=== PATIENT | male | born 1970 | race Caucasian/White ===

== ENCOUNTER 2020-03-05 13:31 | Inpatient (IN) | payer OTHER, MEDICAID ==
[~2020-03-05] VITALS: Ht 185.4 cm; Wt 79.8 kg
[2020-03-05 13:47] VITALS: BP_SYST 145
[2020-03-05] MEDS ORDERED: KETOROLAC TROMETHAMINE 30 MG VIAL IVP ONE (14:30)
[2020-03-05 14:38] LABS: BASOPHILS % (AUTO) 0.6 % (0.0-2.0); EOSINOPHILS % (AUTO) 0.4 % (0.0-4.0); HEMATOCRIT 39.2 % (36-54); HEMOGLOBIN 13.4 g/dL (14.0-18.0); LYMPHOCYTES # (AUTO) 0.9 K/uL (1.0-5.5); MEAN CORPUSCULAR HEMOGLOBIN 30 pg (27-31); MEAN CORPUSCULAR HGB CONC 34 % (32-36); MEAN CORPUSCULAR VOLUME 89 fL (79.0-98.0); MONOCYTES # (AUTO) 0.5 K/uL (0.0-1.0); MONOCYTES % (AUTO) 11.1 % (1.7-9.3); NEUTROPHILS # (AUTO) 3.2 K/uL (1.8-7.7); NEUTROPHILS % (AUTO) 68.9 % (40.0-70.0); PLATELET COUNT (AUTO) 203 K/uL (130-430); RED BLOOD CELL COUNT(AUTO) 4.43 MIL/uL (4.2-6.2); RED CELL DISTRIBUTION WIDTH 14.4 % (9.0-15.0); WHITE BLOOD COUNT (AUTO) 4.6 K/uL (4.8-10.8)
[2020-03-05 14:51] LABS: CALCIUM 7.8 mg/dL (8.4-11.0); CREATININE 0.94 mg/dL (0.55-1.30); POTASSIUM 3.8 mmol/L (3.5-5.1)
[2020-03-05 14:56] LABS: ALBUMIN 3.8 g/dL (3.4-4.8); TOTAL BILIRUBIN 0.6 mg/dL (0.0-1.0)
[2020-03-05 16:20] VITALS: BP_SYST 142
[2020-03-05] MEDS ORDERED: THIAMINE HCL 100 MG TABLET PO ONE (16:30)
[2020-03-05] MEDS ORDERED: MAGNESIUM SULFATE 50 ML IV PRN (16:30)
[2020-03-05] MEDS ORDERED: ZOLPIDEM TARTRATE 5 MG TABLET PO PRN (16:30)
[2020-03-05] MEDS ORDERED: DOCUSATE SODIUM 100 MG CAPSULE PO PRN (16:30)
[2020-03-05] MEDS ORDERED: FOLIC ACID 1 MG TABLET PO ONE (16:30)
[2020-03-05] MEDS ORDERED: ONDANSETRON HCL 4 MG/2 ML VIAL IVP PRN (16:30)
[2020-03-05] MEDS ORDERED: FOLIC ACID 1 MG, THIAMINE HCL 100 MG, MAGNESIUM SULFATE 1 GM, MVI 10 ML in NACL 0.9% 1,... IV SCH (16:30)
[2020-03-05] MEDS ORDERED: MUPIROCIN 2% TOPICAL OINTMENT 22 GM NS PRN (16:30)
[2020-03-05] MEDS ORDERED: MORPHINE SULFATE 10 MG/ML VIAL IVP PRN ×2 (16:30)
[2020-03-05] MEDS ORDERED: POTASSIUM CHLORIDE 20 MEQ TAB.PRT.SR PO PRN (16:30)
[2020-03-05] MEDS ORDERED: ACETAMINOPHEN 325 MG TABLET PO PRN (16:30)
[2020-03-05] MEDS: NACL 0.9% 1,000 ML IV SCH ×2 (16:35→22:20)
[2020-03-05] MEDS: LORazepam 2 MG/ML VIAL IVP PRN (16:49)
[2020-03-05] MEDS: THIAMINE HCL 100 MG, MAGNESIUM SULFATE 1 GM in NS 100 ML IV SCH (17:47)
[2020-03-05] MEDS: FOLIC ACID 1 MG, MVI 10 ML in NACL 0.9% 1,000 ML IV SCH (17:47)
[2020-03-05 20:00] VITALS: BP_SYST 122
[2020-03-05] MEDS: chlordiazePOXIDE HCL 25 MG CAPSULE PO SCH (21:25)
[2020-03-05] MEDS: HEPARIN SODIUM,PORCINE 5000 UNITS/ML VIAL SUBCUT SCH (21:36)
[2020-03-06] MEDS: LORazepam 2 MG/ML VIAL IVP PRN ×7 (00:12→22:10)
[2020-03-06 00:27] VITALS: BP_SYST 143
[2020-03-06 05:14] VITALS: BP_SYST 134
[2020-03-06 06:47] LABS: BASOPHILS % (AUTO) 0.6 % (0.0-2.0); EOSINOPHILS % (AUTO) 1.4 % (0.0-4.0); HEMATOCRIT 36.6 % (36-54); HEMOGLOBIN 12.8 g/dL (14.0-18.0); LYMPHOCYTES # (AUTO) 0.9 K/uL (1.0-5.5); LYMPHOCYTES % (AUTO) 27.1 % (20.5-51.5); MEAN CORPUSCULAR HEMOGLOBIN 31 pg (27-31); MEAN CORPUSCULAR HGB CONC 35 % (32-36); MEAN CORPUSCULAR VOLUME 88 fL (79.0-98.0); MONOCYTES # (AUTO) 0.7 K/uL (0.0-1.0); MONOCYTES % (AUTO) 19.8 % (1.7-9.3); NEUTROPHILS # (AUTO) 1.7 K/uL (1.8-7.7); NEUTROPHILS % (AUTO) 51.1 % (40.0-70.0); PLATELET COUNT (AUTO) 175 K/uL (130-430); RED BLOOD CELL COUNT(AUTO) 4.18 MIL/uL (4.2-6.2); RED CELL DISTRIBUTION WIDTH 13.7 % (9.0-15.0); WHITE BLOOD COUNT (AUTO) 3.4 K/uL (4.8-10.8)
[2020-03-06 07:02] LABS: CALCIUM 7.7 mg/dL (8.4-11.0); CREATININE 0.81 mg/dL (0.55-1.30); POTASSIUM 3.7 mmol/L (3.5-5.1)
[2020-03-06 08:12] VITALS: BP_SYST 148
[2020-03-06] MEDS: chlordiazePOXIDE HCL 25 MG CAPSULE PO SCH ×3 (08:33→21:16)
[2020-03-06] MEDS: HEPARIN SODIUM,PORCINE 5000 UNITS/ML VIAL SUBCUT SCH ×2 (08:37→21:17)
[2020-03-06] MEDS ORDERED: FOLIC ACID 1 MG TABLET PO SCH (09:00)
[2020-03-06] MEDS ORDERED: THIAMINE HCL 100 MG TABLET PO SCH (09:00)
[2020-03-06] MEDS: NACL 0.9% 1,000 ML IV SCH ×2 (09:31→21:21)
[2020-03-06 12:15] VITALS: BP_SYST 162
[2020-03-06] MEDS ORDERED: MUPIROCIN 2% TOPICAL OINTMENT 22 GM TP ONE (13:00)
[2020-03-06 16:15] VITALS: BP_SYST 145
[2020-03-06] MEDS: FOLIC ACID 1 MG, MVI 10 ML in NACL 0.9% 1,000 ML IV SCH (16:45)
[2020-03-06] MEDS: THIAMINE HCL 100 MG, MAGNESIUM SULFATE 1 GM in NS 100 ML IV SCH (16:45)
[2020-03-06 20:30] VITALS: BP_SYST 136
[2020-03-06] MEDS: MUPIROCIN 2% TOPICAL OINTMENT 22 GM TP SCH (21:19)
[2020-03-07 00:29] VITALS: BP_SYST 151
[2020-03-07] MEDS: LORazepam 2 MG/ML VIAL IVP PRN ×3 (01:58→08:06)
[2020-03-07 04:00] VITALS: BP_SYST 138
[2020-03-07 06:58] LABS: BASOPHILS % (AUTO) 0.5 % (0.0-2.0); EOSINOPHILS # (AUTO) 0.1 K/uL (0.0-0.4); EOSINOPHILS % (AUTO) 1.9 % (0.0-4.0); HEMATOCRIT 37.3 % (36-54); HEMOGLOBIN 12.9 g/dL (14.0-18.0); LYMPHOCYTES # (AUTO) 0.6 K/uL (1.0-5.5); LYMPHOCYTES % (AUTO) 19.3 % (20.5-51.5); MEAN CORPUSCULAR HEMOGLOBIN 31 pg (27-31); MEAN CORPUSCULAR HGB CONC 35 % (32-36); MEAN CORPUSCULAR VOLUME 88 fL (79.0-98.0); MONOCYTES # (AUTO) 0.6 K/uL (0.0-1.0); NEUTROPHILS # (AUTO) 1.8 K/uL (1.8-7.7); NEUTROPHILS % (AUTO) 58.3 % (40.0-70.0); PLATELET COUNT (AUTO) 170 K/uL (130-430); RED BLOOD CELL COUNT(AUTO) 4.23 MIL/uL (4.2-6.2); RED CELL DISTRIBUTION WIDTH 13.7 % (9.0-15.0); WHITE BLOOD COUNT (AUTO) 3.1 K/uL (4.8-10.8)
[2020-03-07 07:10] VITALS: BP_SYST 137
[2020-03-07 07:10] LABS: CALCIUM 7.9 mg/dL (8.4-11.0); CREATININE 0.77 mg/dL (0.55-1.30); POTASSIUM 3.4 mmol/L (3.5-5.1)
[2020-03-07 08:00] VITALS: BP_SYST 153
[2020-03-07] MEDS: NACL 0.9% 1,000 ML IV SCH (08:05)
[2020-03-07] MEDS: chlordiazePOXIDE HCL 25 MG CAPSULE PO SCH (08:05)
[2020-03-07] MEDS: HEPARIN SODIUM,PORCINE 5000 UNITS/ML VIAL SUBCUT SCH (08:06)
[2020-03-07] MEDS: MUPIROCIN 2% TOPICAL OINTMENT 22 GM TP SCH (08:07)
[2020-03-07] MEDS ORDERED: LIB25 PO ×2 (10:02)
[2020-03-07 10:07] VITALS: BP_SYST 153
== END 2020-03-07 10:15 | disposition home or self-care (01) | DRG 897 ==
LOC: SED 13:31 → STU 15:34
PROVIDERS: ADMIT General Practice; ATTEND General Practice
DX: F10.239 Alcohol dependence with withdrawal, unspecified (principal); Z60.2 Problems related to living alone; R56.9 Unspecified convulsions; Z71.41 Alcohol abuse counseling and surveillance of alcoholic
CPT/HCPCS: 36415; 71045; 80048; 80053; 83036; 83735-TC; 84484; 85025; 87081; 93005; 96374; 99285; G0378; G0482; J1644; J1885; J2060; J3411; J3475; J3490; J7030

== ENCOUNTER 2020-03-11 02:54 | Observation (INO) | payer OTHER, MEDICAID ==
[~2020-03-11] VITALS: Ht 185.4 cm; Wt 79.4 kg
[2020-03-11 02:54] VITALS: BP_SYST 131
[~2020-03-11 02:54] MED LIST: LIB25 PO
[2020-03-11] MEDS ORDERED: FOLIC ACID 1 MG, THIAMINE HCL 100 MG, MAGNESIUM SULFATE 1 GM, MVI 10 ML in NACL 0.9% 1,... IV ONE (03:15)
[2020-03-11] MEDS ORDERED: FOLIC ACID 5 MG/ML VIAL IV ONE (03:28)
[2020-03-11] MEDS ORDERED: MVI 10 ML VIAL IV ONE (03:28)
[2020-03-11] MEDS ORDERED: MAGNESIUM SULFATE 1 GM/2 ML VIAL ONE (03:28)
[2020-03-11] MEDS ORDERED: THIAMINE HCL 100 MG/ML VIAL ONE (03:28)
[2020-03-11] MEDS ORDERED: chlordiazePOXIDE HCL 25 MG CAPSULE PO ONE ×2 (03:45→07:15)
[2020-03-11 03:59] LABS: BASOPHILS % (AUTO) 0.4 % (0.0-2.0); EOSINOPHILS % (AUTO) 0.8 % (0.0-4.0); HEMATOCRIT 43.9 % (36-54); HEMOGLOBIN 14.9 g/dL (14.0-18.0); LYMPHOCYTES # (AUTO) 0.8 K/uL (1.0-5.5); LYMPHOCYTES % (AUTO) 13.6 % (20.5-51.5); MEAN CORPUSCULAR HEMOGLOBIN 31 pg (27-31); MEAN CORPUSCULAR HGB CONC 34 % (32-36); MEAN CORPUSCULAR VOLUME 89 fL (79.0-98.0); MONOCYTES # (AUTO) 0.4 K/uL (0.0-1.0); MONOCYTES % (AUTO) 6.7 % (1.7-9.3); NEUTROPHILS # (AUTO) 4.7 K/uL (1.8-7.7); NEUTROPHILS % (AUTO) 78.5 % (40.0-70.0); PLATELET COUNT (AUTO) 217 K/uL (130-430); RED BLOOD CELL COUNT(AUTO) 4.91 MIL/uL (4.2-6.2); RED CELL DISTRIBUTION WIDTH 14.1 % (9.0-15.0)
[2020-03-11 04:09] LABS: ANION GAP 12 (5-15); CHLORIDE 102 mmol/L (98-107); CREATININE 1.06 mg/dL (0.55-1.30); GLUCOSE 82 mg/dL (70-99); SODIUM SERUM 144 mmol/L (136-145); UREA NITROGEN, BLOOD 9 mg/dL (8-21)
[2020-03-11 04:14] LABS: INR 1.1 (0.80-1.20); PROTHROMBIN TIME 10.8 SECS (9.5-12.5)
[2020-03-11 04:26] LABS: ACETAMINOPHEN < 1 ug/mL (1-30); ALANINE AMINOTRANSFERASE 60 U/L (12-78); ALBUMIN 3.8 g/dL (3.4-4.8); ALCOHOL, BLOOD 318 mg/dL (<10); ASPARTATE AMINOTRANSFERASE 73 U/L (10-37); GFR AFRICAN AMERICAN 95 mL/min (>90); TOTAL BILIRUBIN 0.6 mg/dL (0.0-1.0)
[2020-03-11 06:34] LABS: BILIRUBIN,URINE NEGATIVE (NEGATIVE); CLARITY/URINE CLEAR (CLEAR); COLOR,URINE YELLOW (YELLOW); GLUCOSE,URINE NEGATIVE (NEGATIVE); KETONES,URINE TRACE (NEGATIVE); LEUKOCYTE ESTERASE ,URINE NEGATIVE (NEGATIVE); NITRITE, URINE NEGATIVE (NEGATIVE); PROTEIN URINE 1+ (NEGATIVE); UROBILINOGEN,URINE 0.2 (0.2-1.0)
[2020-03-11 06:35] LABS: BLOOD, URINE TRACE (NEGATIVE)
[2020-03-11 06:45] LABS: BARBITURATE, URINE NEGATIVE (NEG <=200); BENZODIAZEPINE, URINE POSITIVE (NEG <=150); CANNABINOID, URINE NEGATIVE (NEG <=50); COCAINE, URINE NEGATIVE (NEG <=150); METHAMPHETAMINES SCREEN,URINE NEGATIVE (NEG <=500); OPIATE, URINE NEGATIVE (NEG <=100); PHENCYCLIDINE SCREEN,URINE NEGATIVE (NEG <=25); UR TRICYCLIC ANTIDEPRESSANTS NEGATIVE (NEG <=300); URINE AMPHETAMINE NEGATIVE (NEG <=500); URINE METHADONE NEGATIVE (NEG <=200); URINE OXYCODONE SCREEN NEGATIVE (NEG <=100); URINE PROPOXYPHENE SCREEN NEGATIVE (NEG <=300)
[2020-03-11 06:52] LABS: BACTERIA,URINE RARE /HPF (None Seen); RBC,URINE 0-3 /HPF (0-3); WBC,URINE 0-3 /HPF (0-3)
[2020-03-11 11:00] VITALS: BP_SYST 144
[2020-03-11 11:12] VITALS: BP_SYST 144
[2020-03-11] MEDS ORDERED: FOLIC ACID 1 MG TABLET PO ONE (12:30)
[2020-03-11] MEDS ORDERED: THIAMINE HCL 100 MG TABLET PO ONE (12:30)
[2020-03-11] MEDS: chlordiazePOXIDE HCL 25 MG CAPSULE PO SCH ×3 (12:40→21:22)
[2020-03-11] MEDS: NACL 0.9% 1,000 ML IV SCH ×2 (12:40→21:23)
[2020-03-11] MEDS ORDERED: LORazepam 1 MG TABLET PO ONE (14:45)
[2020-03-11 20:30] VITALS: BP_SYST 132
[2020-03-12 00:18] VITALS: BP_SYST 128
[2020-03-12] MEDS: NACL 0.9% 1,000 ML IV SCH ×2 (02:33→11:45)
[2020-03-12 08:00] VITALS: BP_SYST 158
[2020-03-12] MEDS: chlordiazePOXIDE HCL 25 MG CAPSULE PO SCH ×2 (08:05→13:04)
[2020-03-12] MEDS ORDERED: METOPROLOL TARTRATE 50 MG TABLET PO ONE (08:30)
[2020-03-12] MEDS ORDERED: THIAMINE HCL 100 MG TABLET PO SCH (09:00)
[2020-03-12] MEDS ORDERED: FOLIC ACID 1 MG TABLET PO SCH (09:00)
== END 2020-03-12 15:05 | disposition home or self-care (01) ==
LOC: SED 02:54 → INTOOBSV 10:45 → STU 10:45
PROVIDERS: ADMIT General Practice; ATTEND General Practice
DX: F10.239 Alcohol dependence with withdrawal, unspecified (principal); Z79.899 Other long term (current) drug therapy; Y90.8 Blood alcohol level of 240 mg/100 ml or more
CPT/HCPCS: 36415; 80053; 80307; 81000; 85025; 85610; 85730; 87081; 93005; 96365; 96366; 99285; G0378 ×2; G0480; G0481; G0482; J3411; J3475; J3490; J7030 ×2